=== PATIENT | male | born 1995 | race Caucasian/White ===

== ENCOUNTER 2024-01-30 15:29 | Emergency (ER) | payer OTHER ==
[~2024-01-30] VITALS: Ht 165.1 cm; Wt 62.6 kg
[2024-01-30 16:10] VITALS: BP 136/79; PULSE 92; RESP 16; TEMP 97.6; O2SAT 97
== END 2024-01-30 18:25 | disposition left against medical advice (07) ==
LOC: MED 15:29
DX: R51.9 Headache, unspecified (principal); R00.2 Palpitations; R42 Dizziness and giddiness; Z53.21 Procedure and treatment not carried out due to patient leaving prior to being seen by health care provider
CPT/HCPCS: 93005